=== PATIENT | male | born 1995 | race Caucasian/White ===

== ENCOUNTER 2017-06-18 09:42 | Inpatient (IN) ==
[2017-06-18] MEDS ORDERED: ONDANSETRON 4 MG/2 ML VIAL IV PRN ×2 (10:33→14:52)
[2017-06-18] MEDS ORDERED: BALANCED SALT IRRIG SOLN 15 ML BOTTLE ONE (10:45)
[2017-06-18] MEDS ORDERED: BUPIVACAINE 0.5% 50 ML VIAL ONE (10:48)
[2017-06-18] MEDS ORDERED: LIDOCAINE 2% 20 ML VIAL ONE (10:48)
[2017-06-18] MEDS ORDERED: TETRACAINE 0.5% OPH SOLN 4 ML BOTTLE ONE (10:48)
[2017-06-18] MEDS ORDERED: HYALURONATE/CHONDROITIN 1 EACH KIT INTRAOCULR ONE (11:00)
[2017-06-18] MEDS: LACTATED RINGERS 1,000 ML IV SCH ×2 (11:03→21:00)
[2017-06-18] MEDS ORDERED: BACITRACIN OPH OINT 3.5 GM TUBE ONE (13:40)
[2017-06-18] MEDS ORDERED: PROPOFOL 200 MG/20 ML VIAL IV ONE (14:40)
[2017-06-18] MEDS ORDERED: SEVOFLURANE 1 UNIT/15 MINUTE INH ONE (14:40)
[2017-06-18] MEDS ORDERED: ONDANSETRON 4 MG/2 ML VIAL ONE (14:41)
[2017-06-18] MEDS ORDERED: SODIUM CHLORIDE 0.9% 250 ML IV ONE (14:41)
[2017-06-18] MEDS ORDERED: ROCURONIUM 100 MG/10 ML VIAL IV ONE (14:41)
[2017-06-18] MEDS ORDERED: PHENYLEPHRINE 10 MG/1 ML VIAL IV ONE (14:41)
[2017-06-18] MEDS ORDERED: MIDAZOLAM 2 MG/2 ML VIAL ONE (14:41)
[2017-06-18] MEDS ORDERED: PHENYLEPHRINE 1 MG/10 ML SYRINGE IV ONE (14:41)
[2017-06-18] MEDS ORDERED: LACTATED RINGERS 1,000 ML IV ONE (14:41)
[2017-06-18] MEDS ORDERED: HYDROmorphone 2 MG/1 ML VIAL IV PRN (14:52)
[2017-06-18] MEDS ORDERED: LACTATED RINGERS 1,000 ML IV SCH (15:00)
[2017-06-18] MEDS: MORPHINE 4 MG/1 ML VIAL IV PRN ×2 (17:56→20:57)
[2017-06-19] MEDS: MORPHINE 4 MG/1 ML VIAL IV PRN ×5 (00:17→12:31)
[2017-06-19] MEDS: LACTATED RINGERS 1,000 ML IV SCH (05:15)
[2017-06-19 07:40] LABS: Basophils % 0.4 % (0.0-0.8); Eosinophils # 0.1 10*3/uL (0.0-0.87); Eosinophils % 0.8 % (0.00-10.9); Hematocrit 34.1 VOL% (42.0-52.0); Hemoglobin 11.5 GM/DL (14.0-18.0); Immature Granulocytes % 0.3 %; Immature Granulocytes Absolute 0.02 #; Lymphocytes # 1.1 10*3/uL (1.4-4.0); Lymphocytes % 15.3 % (21.2-54.2); Mean Corpuscular HGB Conc 33.7 GM/DL (32-36); Mean Corpuscular Hemoglobin 31 PG (27-34); Mean Corpuscular Volume 92.2 FL (87-102); Mean Platelet Volume 10.5 FL (9.6-12.0); Monocytes # 0.6 10*3/uL (0.11-0.8); Monocytes % 8.2 % (1.7-12.7); Neutrophils # 5.5 10*3/uL (1.4-7.4); Platelet Count 161 T/CUMM (130-400); Red Cell Distribution Width 12.8 % (9.3-17.3); White Blood Count 7.3 T/CUMM (4-12)
[2017-06-19 08:01] LABS: Osmolality,Calculated 279.3 MOS/KG (273-304); Potassium 3.5 MMOL/L (3.5-5.1)
[2017-06-19] MEDS ORDERED: ERYTHROMYCIN 0.5% OPHT OINT 3.5 GM TUBE RIGHT EYE SCH (23:45)
[2017-06-20] MEDS: prednisoLONE ACETATE 1% OPH SUSP 5 ML BOTTLE RIGHT EYE SCH ×2 (01:03→09:35)
[2017-06-20 07:59] VITALS: BP 132/66
[2017-06-20] MEDS ORDERED: MOXIFLOXACIN 0.5% OPH SOLN 3 ML BOTTLE RIGHT EYE SCH (09:00)
[2017-06-20] MEDS ORDERED: ATROPINE 1 % OPH SOLN 5 ML BOTTLE RIGHT EYE SCH (09:00)
[2017-06-20] MEDS ORDERED: prednisoLONE ACETATE 1% OPH SUSP 5 ML BOTTLE RIGHT EYE SCH (09:00)
[2017-06-20] MEDS ORDERED: PANTOPRAZOLE 40 MG TABLET PO SCH (09:00)
== END 2017-06-20 11:21 | disposition home or self-care (01) | DRG 116 ==
LOC: N.2E 10:37
PROVIDERS: ADMIT Surgery; ATTEND Surgery